=== PATIENT | female | born 1970 | race Caucasian/White ===

== ENCOUNTER 2018-11-10 00:21 | Inpatient (IN) | payer BC, MEDICAID ==
[2018-11-10 00:56] LABS: ABSOLUTE EOSINOPHILS # (AUTO) 0.1 10^3/uL (0.0-0.6); ABSOLUTE LYMPHOCYTES (AUTO) 0.9 10^3/uL (0.5-4.7); ABSOLUTE MONOCYTES (AUTO) 0.4 10^3/uL (0.1-1.4); BASOPHILS % (AUTO) 0.1 % (0-2); EOSINOPHILS % (AUTO) 1.6 % (0-6); HEMOGLOBIN 11.6 g/dL (12.0-15.5); LYMPHOCYTES % (AUTO) 15.8 % (13-45); MEAN CORPUSCULAR HEMOGLOBIN 29.3 pg (27.0-33.4); MEAN CORPUSCULAR HGB CONC 34.3 g/dL (32.0-36.0); MEAN CORPUSCULAR VOLUME 85 fl (80-97); MONOCYTES % (AUTO) 7.8 % (3-13); PLATELET COUNT 171 10^3/uL (150-450); RED BLOOD COUNT 3.98 10^6/uL (3.72-5.28); RED CELL DISTRIBUTION WIDTH 12.2 % (11.5-14.0); SEGMENTED NEUTROPHILS % (AUTO) 74.7 % (42-78); TOTAL CELLS COUNTED % (AUTO) 100 %; WHITE BLOOD COUNT 5.4 10^3/uL (4.0-10.5)
--- NOTE | 2018-11-10 00:57 | ER Document Report ---
ED Syncope and Near Syncope - General Chief Complaint: Syncope Stated Complaint: SYNCOPE Time Seen by Provider: 11/10/18 00:57 Primary Care Provider: PENNY WALDEN CRNP [COMMUNITY BASED STAFF] - Follow up as needed Mode of Arrival: Ambulatory Information source: Patient Notes: HISTORY OF PRESENT ILLNESS: Patient is a 48-year-old female with a past medical history of Crohn's disease status post ileectomy status post appendectomy who presents with sudden onset upper abdominal pain beginning prior to arrival. Location: Upper abdomen Onset: Sudden Alleviation: None Provocation: Movement Quality: "Aching and stabbing at the same time" Radiation: None Severity: "Moderate now but worse earlier " Timing: Constant History of abdominal surgery: Yes Associated symptoms: Nausea but no vomiting, normal bowel movements without diarrhea or constipation Last bowel movement: Prior to arrival and "normal" REVIEW OF SYSTEMS: CONSTITUTIONAL : Denies fever or chills, no sweats. Denies recent illness. EENT: Denies eye, ear, throat, or mouth pain or symptoms. Denies nasal or sinus congestion. CARDIOVASCULAR: Denies chest pain. Denies swelling of the legs. RESPIRATORY: Denies cough, cold, or chest congestion. Denies shortness of breath or difficulty breathing. Denies wheezing. GASTROINTESTINAL: Positive for abdominal pain. Positive for nausea but no vo miting. Denies diarrhea or constipation. GENITOURINARY: Denies difficulty urinating, painful urination, burning, frequency, or blood in urine. FEMALE GENITOURINARY: Denies vaginal bleeding, abnormal or irregular periods. MUSCULOSKELETAL: Denies neck or back pain or joint pain or swelling. SKIN: Denies rash or skin lesions. HEMATOLOGIC : Denies easy bruising or bleeding. LYMPHATIC: Denies swollen, enlarged glands. NEUROLOGICAL: Denies altered mental status or loss of consciousness. Denies headache. Denies weakness or paralysis or loss of use of either side. Denies problems with gait or speech. Denies sensory or motor loss. PSYCHIATRIC: Denies anxiety or stress or depression. All other systems reviewed and negative. PHYSICAL EXAMINATION: GENERAL: Uncomfortable-appearing, well-nourished and in no acute distress. HEAD: Atraumatic, normocephalic. No scalp deformity, depression, or crepitance. EYES: Pupils are 3 mm and equal/round/reactive to light, extraocular movements intact, sclera anicteric, conjunctiva are normal. ENT: Nares patent bilaterally, oropharynx. Moist mucous membranes. No tonsil hypertrophy. NECK: Normal range of motion, supple without lymphadenopathy. LUNGS: Breath sounds present, equal, and clear to auscultation bilaterally. No wheezes, rales, or rhonchi. HEART: Regular rate and rhythm without murmurs, rubs, or gallops. 2+ peripheral pulses. Normal capillary refill. ABDOMEN: Soft and nondistended, mild diffuse upper epigastric and upper a bdominal tenderness. Normoactive bowel sounds. No guarding, no rebound. No masses appreciated. BACK: Normal contour, no midline tenderness. Rectal exam deferred. GENITAL/PELVIC: Deferred. EXTREMITIES: Normal range of motion, no pitting or edema. No cyanosis. NEUROLOGICAL: No focal neurological deficits. Moves all extremities spontaneously and on command. PSYCH: Normal mood, normal affect. No suicidal thoughts/ideations. No homocidal thoughts/ideations. No hallucinations. SKIN: Warm, dry, normal turgor, no rashes or lesions noted. ASSESSMENT AND PLAN: This patient is a 48-year-old female who presents with upper abdominal pain. Differential includes Crohn's flare versus intra-abdominal abscess versus GERD versus pancreatitis versus gastritis versus colitis 1. Will obtain labs, urinalysis, and CT scan of the abdomen/pelvis. 2. Will give IV fluids with morphine/Zofran for symptomatic control. TRAVEL OUTSIDE OF THE [place] IN LAST 30 DAYS: No - Related Data Allergies/Adverse Reactions: rimadyl Allergy (Uncoded 11/10/18 02:58) Past Medical History - General Information source: Patient - Social History Smoking Status: Never Smoker Chew tobacco use (# tins/day): No Frequency of alcohol use: None Drug Abuse: None Lives with: Family Family History: Reviewed & Not Pertinent Patient has suicidal ideation: No Patient has homicidal ideation: No - Past Medical History Cardiac Medical History: Reports: None Pulmonary Medical History: Reports: None EENT Medical History: Reports: None Neurological Medical History: Reports: None Endocrine Medical History: Reports: None Renal/ Medical History: Reports: None Malignancy Medical History: Reports: None GI Medical History: Reports: Hx Crohn's Disease Musculoskeletal Medical History: Reports None Skin Medical History: Reports None Psychiatric Medical History: Reports: None Traumatic Medical History: Reports: None Infectious Medical History: Reports: None Past Surgical History: Reports: Hx Abdominal Surgery, Hx Appendectomy - Immunizations Immunizations up to date: Yes Hx Diphtheria, Pertussis, Tetanus Vaccination: Yes History of Influenza Vaccine for 07/2017 - 12/2017 Season: Yes Physical Exam - Vital signs Vitals: Temp 97.6 F 11/10/18 00:21 Course - Re-evaluation Re-evalutation: 11/10/18 05:09 Lab work, including urinalysis and cardiac enzymes, normal. Patient has a n ormal white blood cell count and continues to be afebrile without evidence of infection. Orthostatic vital signs were normal without evidence of orthostasis. CT scan has been completed but the results are still pending. 11/10/18 06:08 CT scan shows evidence of a partial small bowel obstruction in the terminal ileum. Per surgical recommendation, as well as the internal medicine hospitalist, both agree patient will be best served transfer to a tertiary center. I have spoken with the patient about this and she also agrees. Will contact transfer center. 11/10/18 07:03 Patient has been accepted to [facility]. - Vital Signs Vital signs: Temp Pulse Resp BP Pulse Ox 98.2 F 17 114/74 97 11/10/18 04:25 11/10/18 06:22 11/10/18 06:22 11/10/18 06:22 - Laboratory Result Diagrams: 11/10/18 00:42 11/10/18 00:42 Laboratory results interpreted by me: 11/10/18 11/10/18 00:42 03:40 Hgb 11.6 L Hct 34.0 L Urine Ketones TRACE H - Diagnostic Test Radiology reviewed: Image reviewed - EKG Interpretation by Ri EKG shows normal: Sinus rhythm Rate: Normal Rhythm: NSR [place]/QRS: No: Right axis deviation, Left axis deviation, RBBB, LBBB, IVCD, LAHB/LAFB, LPHB/LPFB, Bifasicular block Voltage: No: Increased voltage, Consistant with LVH, Decreased voltage, Thr oughout, Limb leads P Waves: No: LAURENT, LAE, Absent, AV Dissociation, Other Heart block present: No: 1st Degree, Mobitz 1, Mobitz 2, CHB (3rd degree block) When compared to previous EKG there are: Previous EKG unavailable - Consults Dr. Lainez Time consulted: 05:47 - would be best served at tertiary center Dr. Linares ([facility] [place]) Time consulted: 07:04 Discharge - Discharge Clinical Impression: Partial small bowel obstruction Abdominal pain Qualifiers: Abdominal location: generalized Qualified Code(s): R10.84 - Generalized abdominal pain Crohns disease Qualifiers: Gastrointestinal tract location: small intestine Digestive disease complication type: with intestinal obstruction Qualified Code(s): K50.012 - Crohn's disease of small intestine with intestinal obstruction Condition: Stable Disposition: [facility] Referrals: PENNY WALDEN CRNP [COMMUNITY BASED STAFF] - Follow up as needed
[2018-11-10 01:09] LABS: ALANINE AMINOTRANSFERASE 22 U/L (9-52); ALKALINE PHOSPHATASE 63 U/L (38-126); ANION GAP 9 (5-19); ASPARTATE AMINO TRANSFERASE 16 U/L (14-36); BILIRUBIN,DIRECT 0.1 mg/dL (0.0-0.4); BILIRUBIN,TOTAL 0.6 mg/dL (0.2-1.3); BLOOD UREA NITROGEN 12 mg/dL (7-20); CALCIUM 8.5 mg/dL (8.4-10.2); CARBON DIOXIDE 26 mmol/L (22-30); CHLORIDE 106 mmol/L (98-107); CREATINE KINASE 34 U/L (30-135); GLUCOSE 104 mg/dL (75-110); POTASSIUM 3.9 mmol/L (3.6-5.0); SODIUM 140.5 mmol/L (137-145); TOTAL PROTEIN 6.3 g/dL (6.3-8.2)
[2018-11-10 01:22] LABS: CREATINE KINASE MB < 0.22 ng/mL (<4.55); TROPONIN I < 0.012 ng/mL
[2018-11-10] MEDS ORDERED: NORMAL SALINE 1000 ML 1,000 ML IV ONE ×3 (02:34→07:14)
[2018-11-10] MEDS ORDERED: MORPHINE SULFATE 10 MG/ML INJ IV ONE ×2 (02:36→07:15)
[2018-11-10] MEDS ORDERED: ONDANSETRON HCL INJ/PF 4 MG/2 ML SDV IV ONE ×3 (02:36→17:11)
[2018-11-10 04:18] LABS: APPEARANCE,URINE SLIGHTLY-CLOUDY; BILIRUBIN,URINE NEGATIVE (NEGATIVE); COLOR,URINE YELLOW; GLUCOSE, URINE NEGATIVE (NEGATIVE); KETONES,URINE TRACE mg/dL (NEGATIVE); LEUKOCYTE ESTERASE,URINE NEGATIVE (NEGATIVE); NITRITE,URINE NEGATIVE (NEGATIVE); PROTEIN,URINE NEGATIVE (NEGATIVE); URINE SPECIFIC GRAVITY 1.008; UROBILINOGEN,URINE NEGATIVE mg/dL (<2.0)
--- NOTE | 2018-11-10 05:23 | RADIOLOGY REPORT (SQ) ---
EXAM DESCRIPTION: CT ABDOMEN PELVIS WITH IV CONTRAST COMPLETED DATE/TME: 11/10/2018 00:00 CLINICAL HISTORY: 48 years, Female, Abdominal pain Comparison: None TECHNIQUE: Contiguous axial CT images of the abdomen and pelvis were obtained. Sagittal and coronal reformats were reviewed. This exam was performed according to our departmental dose-optimization program, which includes automated exposure control, adjustment of the mA and/or kV according to patient size and/or use of iterative reconstruction technique. FINDINGS: Lung bases: Clear. Liver:Unremarkable. No focal liver lesion. Gallbladder:Unremarkable. No gallstones. No gallbladder wall thickening or pericholecystic fluid. Spleen:Unremarkable Pancreas: Pancreas is unremarkable. Adrenal glands:Within normal limits. Kidneys/ureters:Within normal limits Stomach/small bowel/colon: Stomach is unremarkable. The distal small bowel is dilated measuring up to 3.7 cm in diameter containing air-fluid level and small bowel feces sign related to stasis. There is abrupt transition point just proximal to the terminal ileum. There may be suture material at this level. Mild mesenteric congestion. The remaining portions of small bowel are mildly dilated. The colon is normal in caliber with retained stool throughout. Appendix: Not visualized. Peritoneum: Small amount of pelvic fluid. Vascular structures: within normal limits Lymph nodes: No abnormal lymph nodes. Bladder:Unremarkable. Pelvic organs: No acute abnormality Bones: No acute osseous abnormality. Soft tissues: Unremarkable.. IMPRESSION: At least partial small bowel obstruction with transition point at the terminal ileum.
[2018-11-10] MEDS ORDERED: METOCLOPRAMIDE HCL INJ/PF 10 MG/2 ML SDV IV ONE (10:13)
[2018-11-10] MEDS ORDERED: LIDOCAINE 2% JELLY 5 ML TUBE NASL ONE (10:13)
--- NOTE | 2018-11-10 10:58 | ER Document Report ---
Doctor's Note Notes: 11/10/18 10:54 Rounds: Chart reviewed and patient interviewed. Patient is being treated for a flare of her Crohn's disease associated with a small bowel obstruction on CT scan here last night. Patient was first diagnosed with Crohn's nearly 10 years ago and had one surgical procedure in 2009. Patient is awaiting transfer to [facility] but they are on the bed delay. Receiving pain medications and anti- antiemetic. Patient appears to be medically stable for transfer. Christelle Mario MD
--- NOTE | 2018-11-10 11:43 | RADIOLOGY REPORT (SQ) ---
EXAM DESCRIPTION: CHEST SINGLE VIEW COMPLETED DATE/TIME: 11/10/2018 11:29 am REASON FOR STUDY: NG Tube COMPARISON: CT abdomen pelvis 11/10/2018 EXAM PARAMETERS: NUMBER OF VIEWS: One view. TECHNIQUE: Single frontal radiographic view of the chest acquired. RADIATION DOSE: NA LIMITATIONS: None. FINDINGS: LUNGS AND PLEURA: No opacities, masses or pneumothorax. No pleural effusion. MEDIASTINUM AND HILAR STRUCTURES: No masses. Contour normal. HEART AND VASCULAR STRUCTURES: Heart normal in size. Normal vasculature. BONES: No acute findings. HARDWARE: Nasogastric tube tip and side port in the stomach. OTHER: No other significant finding. IMPRESSION: NO ACUTE RADIOGRAPHIC FINDING IN THE CHEST. TECHNICAL DOCUMENTATION: JOB ID: [id number] [email or web address]- All Rights Reserved Reading location - IP/workstation name: [email or web address]
[2018-11-10] MEDS ORDERED: HYDROMORPHONE HCL INJ/PF 2 MG/ML AMPULE IV ONE (17:10)
[2018-11-10] MEDS ORDERED: POTASSI CL 40 MEQ/D5-1/2NS 1L 40 MEQ/1,000 ML RTUINJ IV ONE (19:52)
[2018-11-10] MEDS ORDERED: MORPHINE SULFATE 10 MG/ML INJ IV PRN (21:59)
[2018-11-11] MEDS: HYDROMORPHONE HCL INJ/PF 2 MG/ML AMPULE IV PRN ×3 (01:51→08:53)
[2018-11-11] MEDS: NORMAL SALINE 1000 ML 1,000 ML IV PRN ×2 (06:35→08:43)
[2018-11-11] MEDS ORDERED: ONDANSETRON HCL INJ/PF 4 MG/2 ML SDV IV ONE (09:51)
--- NOTE | 2018-11-11 10:05 | ER Document Report ---
Doctor's Note Notes: 11/11/18 10:03 Rounds: Chart reviewed and patient interviewed. Patient still awaiting bed assignment at [facility]. We have been told that there are no beds available and none are expected available today. I am going to attempt to get the patient admitted to the hospital here. Patient says she is still having a small amount of pain in the epigastric and right lower quadrant region, although it is better than yesterday. Still some nausea, as well. NG tube in place. Giving IV Zofran. IV fluids being administered. I spoke with the hospitalist who is agreeable with admitting the patient. I have spoken with surgeon retail zone specialist, Dr. Lainez, and he requested a small bowel series with Gastrografin per NG tube. Christelle Mario MD 11/11/18 11:18 Nurse reports patient is complaining of some burning discomfort in the front of the chest going through to the back. She told the nurse that this is what she has as a result of acid reflux. Patient was given Pepcid 10 mg IV. I am reordering some labs and EKG. 11/11/18 13:32 Patient had an x-ray of her abdomen done here showing contrast from her CT scan into the large bowel and into the descending colon. This would suggest that the patient's bowel obstruction is either cleared or clearing. Dr. Lainez was okay with admitting the patient here. Hospitalist called and he will admit the patient here.
[2018-11-11] MEDS ORDERED: FAMOTIDINE INJ/PF 20 MG/2 ML SDV IV ONE ×3 (10:40→12:02)
[2018-11-11] MEDS ORDERED: DEXTROSE 5%-NORMAL SALINE 1,000 ML IV ONE (11:16)
--- NOTE | 2018-11-11 11:37 | RADIOLOGY REPORT (SQ) ---
EXAM DESCRIPTION: KUB/ABDOMEN (SINGLE VIEW) COMPLETED DATE/TIME: 11/11/2018 11:16 am REASON FOR STUDY: with Gastrografin, SBO on CT scan, Hx Crohn's COMPARISON: CT abdomen pelvis 11/10/2018 NUMBER OF VIEWS: One view. TECHNIQUE: Supine radiographic image of the abdomen acquired. LIMITATIONS: None. FINDINGS: BOWEL GAS PATTERN: Oral contrast given for CT abdomen pelvis 11/10/2018 is now seen in the c olon. There are persistent mildly dilated mid and distal small bowel loops. Stomach decompressed. CALCIFICATIONS: No suspicious calcifications. SOFT TISSUES: No gross mass or suggestion of organomegaly. HARDWARE: Nasogastric tube tip and side port in the stomach BONES: No acute fracture. No worrisome bone lesions. OTHER: Distention of urinary bladder IMPRESSION: Oral contrast given for CT exam 11/10/2018 is seen in the colon Persistent air-filled mildly dilated mid and distal small bowel loops. TECHNICAL DOCUMENTATION: JOB ID: [id number] [email or web address]- All Rights Reserved Reading location - IP/workstation name: [email or web address]
--- NOTE | 2018-11-11 12:36 | EKG REPORT ---
SEVERITY:- NORMAL ECG - SINUS RHYTHM : Confirmed by: Bre Loomis 11-Nov-2018 12:34:51
--- NOTE | 2018-11-11 12:36 | EKG REPORT ---
SEVERITY:- NORMAL ECG - SINUS RHYTHM : Confirmed by: Bre Loomis 11-Nov-2018 12:34:43
[2018-11-11 13:53] LABS: ABSOLUTE LYMPHOCYTES (AUTO) 0.5 10^3/uL (0.5-4.7); ABSOLUTE MONOCYTES (AUTO) 0.2 10^3/uL (0.1-1.4); ABSOLUTE NEUT (AUTO) 4.4 10^3/uL (1.7-8.2); BASOPHILS % (AUTO) 0.1 % (0-2); EOSINOPHILS % (AUTO) 0.4 % (0-6); HEMATOCRIT 33.6 % (36.0-47.0); HEMOGLOBIN 11.5 g/dL (12.0-15.5); LYMPHOCYTES % (AUTO) 9.6 % (13-45); MEAN CORPUSCULAR HEMOGLOBIN 29.1 pg (27.0-33.4); MEAN CORPUSCULAR HGB CONC 34.2 g/dL (32.0-36.0); MEAN CORPUSCULAR VOLUME 85 fl (80-97); MONOCYTES % (AUTO) 3.8 % (3-13); PLATELET COUNT 170 10^3/uL (150-450); RED BLOOD COUNT 3.94 10^6/uL (3.72-5.28); RED CELL DISTRIBUTION WIDTH 11.9 % (11.5-14.0); SEGMENTED NEUTROPHILS % (AUTO) 86.1 % (42-78); TOTAL CELLS COUNTED % (AUTO) 100 %; WHITE BLOOD COUNT 5.1 10^3/uL (4.0-10.5)
[2018-11-11 14:07] LABS: ALANINE AMINOTRANSFERASE 26 U/L (9-52); ALBUMIN 4.1 g/dL (3.5-5.0); ALKALINE PHOSPHATASE 66 U/L (38-126); ANION GAP 9 (5-19); ASPARTATE AMINO TRANSFERASE 16 U/L (14-36); BILIRUBIN,DIRECT 0.1 mg/dL (0.0-0.4); BILIRUBIN,TOTAL 0.5 mg/dL (0.2-1.3); BLOOD UREA NITROGEN 4 mg/dL (7-20); CALCIUM 8.4 mg/dL (8.4-10.2); CARBON DIOXIDE 26 mmol/L (22-30); CHLORIDE 105 mmol/L (98-107); GLUCOSE 125 mg/dL (75-110); LIPASE 77.3 U/L (23-300); POTASSIUM 4.1 mmol/L (3.6-5.0); SODIUM 139.8 mmol/L (137-145); TOTAL PROTEIN 6.5 g/dL (6.3-8.2)
[2018-11-11] MEDS ORDERED: DEXTROSE 5%-NORMAL SALINE 1,000 ML IV PRN (16:26)
[2018-11-11] MEDS ORDERED: ONDANSETRON HCL INJ/PF 4 MG/2 ML SDV IV PRN (16:26)
[2018-11-11] MEDS ORDERED: ACETAMINOPHEN 325 MG TABLET PO PRN (16:26)
[2018-11-11] MEDS ORDERED: HYDROMORPHONE HCL INJ/PF 2 MG/ML AMPULE IV PRN (16:33)
[2018-11-11] MEDS: HEPARIN SOD (PORCINE) 5,000 UNIT/ML 1 ML SYRINGE SUBCUT SCH (23:07)
[2018-11-11] MEDS: PANTOPRAZOLE SODIUM 40 MG VIAL IV SCH (23:09)
--- NOTE | 2018-11-12 05:49 | PDOC H&P ---
History of Present Illness Admission Date/PCP: 11/11/18 13:38 Patient complains of: Epigastric pain. Syncope. History of Present Illness: SOWMYA MITCHELL is a 48 year old female with history of Crohn's disease. She states that approximately 3 days ago she experienced a sharp pain in the epigastric area. It is stabbing in nature. It tends to last for 10-15 seconds and then resolves and recurs every 10-15 minutes. She began to notice some orthostasis. She was "woozy "when standing up. She was walking to the bathroom and felt lightheaded. Then when standing up and walking back to bed after using the laboratory she had a syncopal episode hitting her head on the floor. Family reports that she was unconscious for 1-2 minutes. The initial presentation to the emergency department was for syncope but on exam a small bowel obstruction was identified. She has a history of previous obstruction. In 2009 she required a partial ileectomy but since then has not had any significant problems. Past Medical History Cardiac Medical History: Reports: None Pulmonary Medical History: Reports: None EENT Medical History: Reports: None Neurological Medical History: Reports: None Endocrine Medical History: Reports: None Renal/ Medical History: Reports: None Malignancy Medical History: Reports: None GI Medical History: Reports: Crohn's Disease Musculoskeltal Medical History: Reports: None Skin Medical History: Reports: None Psychiatric Medical History: Reports: None Traumatic Medical History: Reports: None Infectious Medical History: Reports: None Past Surgical History Past Surgical History: Reports: Appendectomy, Other - Partial ileectomy Social History Information Source: Patient Lives with: Family Smoking Status: Never Smoker Frequency of Alcohol Use: None Hx Recreational Drug Use: No Drugs: None Hx Prescription Drug Abuse: No - Advance Directive Resuscitation Status: Full Code Family History Family History: Reviewed & Not Pertinent Parental Family History Reviewed: Yes Children Family History Reviewed: Yes Sibling(s) Family History Reviewed.: Yes Medication/Allergy Home Medications: No Home Medications 11/10/18 Allergies/Adverse Reactions: rimadyl Allergy (Uncoded 11/10/18 02:58) Review of Systems Constitutional: ABSENT: chills, fever(s) Eyes: ABSENT: visual disturbances Ears: ABSENT: hearing changes Nose, Mouth, and Throat: ABSENT: mouth pain, sore throat Cardiovascular: PRESENT: other - Orthostasis resolved. ABSENT: edema, palpitations Respiratory: ABSENT: dyspnea, hemoptysis Gastrointestinal: PRESENT: abdominal pain. ABSENT: nausea Genitourinary: ABSENT: difficulty urinating Musculoskeletal: ABSENT: joint swelling Integumentary: ABSENT: diaphoresis, lesions, rash Neurological: ABSENT: abnormal gait, abnormal movements, abnormal speech Psychiatric: ABSENT: anxiety, depression Endocrine: ABSENT: cold intolerance, heat intolerance, polydipsia, polyuria Hematologic/Lymphatic: ABSENT: easy bleeding, easy bruising Physical Exam Vital Signs: Temp Pulse Resp BP Pulse Ox 98.0 F 75 15 111/71 97 11/11/18 23:57 11/12/18 02:00 11/11/18 23:57 11/11/18 23:57 11/11/18 23:57 Intake & Output 11/10/18 11/11/18 11/12/18 06:59 06:59 06:59 Intake Total 1000 2000 3000 Balance 1000 2000 3000 Weight 68.039 kg General appearance: PRESENT: no acute distress, cooperative, well-developed Head exam: PRESENT: normocephalic, other - Abrasion on left side of forehead Eye exam: PRESENT: conjunctiva pink, EOMI. ABSENT: scleral icterus Ear exam: PRESENT: normal external ear exam Mouth exam: PRESENT: moist, tongue midline Teeth exam: ABSENT: dental tenderness Neck exam: ABSENT: carotid bruit, lymphadenopathy Respiratory exam: PRESENT: clear to auscultation rufina, rales, rhonchi, symmetrical, unlabored, wheezes. ABSENT: accessory muscle use Cardiovascular exam: PRESENT: RRR, +S1, +S2 Pulses: PRESENT: normal dorsalis pedis pul GI/Abdominal exam: PRESENT: normal bowel sounds, soft. ABSENT: tenderness Rectal exam: PRESENT: deferred Gentrourinary exam: ABSENT: indwelling catheter Extremities exam: ABSENT: calf tenderness, pedal edema Musculoskeletal exam: PRESENT: ambulatory Neurological exam: PRESENT: alert, awake, oriented to person, oriented to place, oriented to time, oriented to situation, CN II-XII grossly intact Psychiatric exam: PRESENT: normal mood. ABSENT: agitated, anxious Focused psych exam: ABSENT: restlessness Skin exam: PRESENT: abrasion - Left side of forehead. Minimal erythema remains. Still slightly swollen. Results Laboratory Results: 11/11/18 13:37 11/11/18 13:37 11/11/18 11/11/18 13:37 13:37 WBC 5.1 RBC 3.94 Hgb 11.5 L Hct 33.6 L MCV 85 MCH 29.1 MCHC 34.2 RDW 11.9 Plt Count 170 Seg Neutrophils % 86.1 H Lymphocytes % 9.6 L Monocytes % 3.8 Eosinophils % 0.4 Basophils % 0.1 Absolute Neutrophils 4.4 Absolute Lymphocytes 0.5 Absolute Monocytes 0.2 Absolute Eosinophils 0.0 Absolute Basophils 0.0 Sodium 139.8 Potassium 4.1 Chloride 105 Carbon Dioxide 26 Anion Gap 9 BUN 4 L Creatinine 0.51 L Est GFR ( Amer) > 60 Est GFR (Non-Af Amer) > 60 Glucose 125 H Calcium 8.4 Total Bilirubin 0.5 AST 16 ALT 26 Alkaline Phosphatase 66 Total Protein 6.5 Albumin 4.1 Lipase 77.3 11/10/18 11/10/18 11/11/18 00:42 00:42 13:37 Creatine Kinase 34 CK-MB (CK-2) < 0.22 Troponin I < 0.012 < 0.012 Impressions: Abdomen/Pelvis CT 11/10/18 00:00 IMPRESSION: At least partial small bowel obstruction with transition point at the terminal ileum. Chest X-Ray 11/10/18 00:00 IMPRESSION: NO ACUTE RADIOGRAPHIC FINDING IN THE CHEST. KUB X-Ray 11/11/18 09:58 IMPRESSION: Oral contrast given for CT exam 11/10/2018 is seen in the colon Persistent air-filled mildly dilated mid and distal small bowel loops. Assessment & Plan - Diagnosis (1) Partial small bowel obstruction Is this a current diagnosis for this admission?: Yes Plan: The patient has been awaiting transfer to a facility with a GI specialty service. With no beds available she has been in the emergency department for 48 hours. A nasogastric tube had been in place. This is been removed since reimaging shows flow of contrast through the small bowel at this time. The patient is no longer distended. The nasogastric tube is been removed and I will institute ice chips. She tolerates this well we will advance her diet. (2) Abdominal pain Qualifiers: Abdominal location: generalized Qualified Code(s): R10.84 - Generalized abdominal pain Is this a current diagnosis for this admission?: Yes Plan: Resolved (3) Crohns disease Qualifiers: Gastrointestinal tract location: small intestine Digestive disease complication type: with intestinal obstruction Qualified Code(s): K50.012 - Crohn's disease of small intestine with intestinal obstruction Is this a current diagnosis for this admission?: Yes Plan: The last obstruction she had required removal of a small section of ileum. After discharge she should reestablish with a mortgage banker in this area. She has not needed attention to her Crohn's disease since moving from [place] several years ago. - Time Time Spent: 50 to 70 Minutes Medications reviewed and adjusted accordingly: Yes Anticipated discharge: Home
[2018-11-12] MEDS: HEPARIN SOD (PORCINE) 5,000 UNIT/ML 1 ML SYRINGE SUBCUT SCH ×3 (06:20→22:05)
[2018-11-12] MEDS: PANTOPRAZOLE SODIUM 40 MG VIAL IV SCH ×2 (10:14→21:59)
--- NOTE | 2018-11-12 10:51 | PDOC PROGRESS REPORT ---
Subjective Progress Note for:: 11/12/18 Subjective:: Patient did very well with ice chips. No nausea or vomiting. No abdominal pain. She is passing gas per rectum. Reason For Visit: SMALL BOWEL OBSTRUCTION,SYNCOPE Physical Exam Vital Signs: Temp Pulse Resp BP Pulse Ox 97.8 F 75 16 106/61 97 11/12/18 07:25 11/12/18 07:25 11/12/18 07:25 11/12/18 07:25 11/11/18 23:57 Intake & Output 11/11/18 11/12/18 11/13/18 06:59 06:59 06:59 Intake Total 2000 3000 Balance 2000 3000 Weight 67 kg General appearance: PRESENT: no acute distress, cooperative Respiratory exam: PRESENT: clear to auscultation rufina, symmetrical, unlabored. ABSENT: rales, rhonchi, wheezes Cardiovascular exam: PRESENT: RRR, +S1, +S2, systolic murmur GI/Abdominal exam: PRESENT: normal bowel sounds, soft. ABSENT: tenderness Neurological exam: PRESENT: alert, awake, oriented to person, oriented to place, oriented to time, oriented to situation, CN II-XII grossly intact Psychiatric exam: PRESENT: normal mood. ABSENT: agitated, anxious Results Laboratory Results: 11/11/18 13:37 11/11/18 13:37 11/11/18 11/11/18 13:37 13:37 WBC 5.1 RBC 3.94 Hgb 11.5 L Hct 33.6 L MCV 85 MCH 29.1 MCHC 34.2 RDW 11.9 Plt Count 170 Seg Neutrophils % 86.1 H Lymphocytes % 9.6 L Monocytes % 3.8 Eosinophils % 0.4 Basophils % 0.1 Absolute Neutrophils 4.4 Absolute Lymphocytes 0.5 Absolute Monocytes 0.2 Absolute Eosinophils 0.0 Absolute Basophils 0.0 Sodium 139.8 Potassium 4.1 Chloride 105 Carbon Dioxide 26 Anion Gap 9 BUN 4 L Creatinine 0.51 L Est GFR ( Amer) > 60 Est GFR (Non-Af Amer) > 60 Glucose 125 H Calcium 8.4 Total Bilirubin 0.5 AST 16 ALT 26 Alkaline Phosphatase 66 Total Protein 6.5 Albumin 4.1 Lipase 77.3 11/10/18 11/10/18 11/11/18 00:42 00:42 13:37 Creatine Kinase 34 CK-MB (CK-2) < 0.22 Troponin I < 0.012 < 0.012 Impressions: Abdomen/Pelvis CT 11/10/18 00:00 IMPRESSION: At least partial small bowel obstruction with transition point at the terminal ileum. Chest X-Ray 11/10/18 00:00 IMPRESSION: NO ACUTE RADIOGRAPHIC FINDING IN THE CHEST. KUB X-Ray 11/11/18 09:58 IMPRESSION: Oral contrast given for CT exam 11/10/2018 is seen in the colon Persistent air-filled mildly dilated mid and distal small bowel loops. Assessment & Plan - Diagnosis (1) Partial small bowel obstruction Is this a current diagnosis for this admission?: Yes Plan: Tolerated ice chips. Advance to clears and if tolerated may have a full liquid diet tonight. (2) Abdominal pain Qualifiers: Abdominal location: generalized Qualified Code(s): R10.84 - Generalized abdominal pain Is this a current diagnosis for this admission?: Yes Plan: Resolved (3) Crohns disease Qualifiers: Gastrointestinal tract location: small intestine Digestive disease complica tion type: with intestinal obstruction Qualified Code(s): K50.012 - Crohn's disease of small intestine with intestinal obstruction Is this a current diagnosis for this admission?: Yes Plan: The patient needs to see a industrial registered nurse after discharge. Despite her Crohn's disease she has not seen a industrial registered nurse in more than 5 years. I stressed the need to have regular contact with the industrial registered nurse especially for episodes such as this. No acute medical intervention at this time will de lucero to GI doctor. - Time Time Spent with patient: 15-24 minutes Medications reviewed and adjusted accordingly: Yes Anticipated discharge: Home Within: within 48 hours
[2018-11-13] MEDS: HEPARIN SOD (PORCINE) 5,000 UNIT/ML 1 ML SYRINGE SUBCUT SCH ×2 (05:09→16:13)
[2018-11-13] MEDS: PANTOPRAZOLE SODIUM 40 MG VIAL IV SCH (10:05)
--- NOTE | 2018-11-13 15:10 | PDOC DISCHARGE SUMMARY ---
General - Admit/Disc Date/PCP Admission Date/Primary Care Provider: 11/11/18 13:38 Discharge Date: 11/13/18 - Discharge Diagnosis (1) Partial small bowel obstruction Is this a current diagnosis for this admission?: Yes Summary: The patient had several days of epigastric discomfort. This is not the primary reason that she presented to the hospital. When she was evaluated in the emergency department she was found to have a small bowel obstruction. Conservative therapy was employed. She had a nasogastric tube and was n.p.o. She received adequate IV fluids. After 48 hours the patient began to pass flatus. She was given ice chips, subsequently clear liquids and then advance to regular diet. She has tolerated a regular diet. She has had a bowel movement. She will be discharged home today. I did explain that she needs to advance her diet slowly. She should stick with softer foods and add extra gravy to meats. I also told her that she needs to try to have a bowel movement every day until all of the barium contrast is passed. She will utilize MiraLAX as well as [id number] stool softeners. She has not established with a green prize packer locally. I directed her to do so. She is going to discuss this with her primary care as well as acquaintances and subsequently set up an appointment. (2) Abdominal pain Is this a current diagnosis for this admission?: Yes Summary: Secondary to small bowel obstruction. In addition, based on her history, she may likely have gastritis with reflux. She was started on Protonix in the hospital and I encouraged her to continue with an acid suppressant until she follows up with gastroenterology. (3) Crohns disease Is this a current diagnosis for this admission?: Yes Summary: Patient has had Crohn's disease since she was 14 years old. She has had multiple treatments. She did have one episode of small bowel obstruction many years ago that required removal of a 6 inch piece of her ileum. She has been stable and off of active treatment over the last several years. I will not put her on any specific medication for Crohn's at this time. I did direct her to establish with a green prize packer as soon as she can. - Additional Information Resuscitation Status: Full Code Discharge Diet: Cardiac, Diabetic, Other (Comments) - Utilize MiraLAX until barium contrast is expelled. Discharge Activity: Activity As Tolerated, Balance Activity w/Rest Home Medications: No Home Medications 11/10/18 History of Present Illness Patient complains of: Syncope with epigastric discomfort History of Present Illness: SOWMYA MITCHELL is a 48 year old female with history of Crohn's disease. She states that approximately 3 days ago she experienced a sharp pain in the epigastric area. It is stabbing in nature. It tends to last for 10-15 seconds and then resolves and recurs every 10-15 minutes. She began to notice some orthostasis. She was "woozy "when standing up. She was walking to the bathroom and felt lightheaded. Then when standing up and walking back to bed after using the laboratory she had a syncopal episode hitting her head on the floor. Family reports that she was unconscious for 1-2 minutes. The initial presentation to the emergency department was for syncope but on exam a small bowel obstruction was identified. She has a history of previous obstruction. In 2009 she required a partial ileectomy but since then has not had any significant problems. Hospital Course Hospital Course: The patient had a benign hospital course. Initially she was awaiting transfer to a facility with full-time gastroenterology. While waiting treatment was initiated with conservative care. An NG tube was placed. She was on IV fluids to maintain hydration and was given nothing by mouth. Medications were administered intravenously. These included medications for pain and nausea. After approximately 48 hours a repeat abdominal films show that the contrast was moving through the bowel and reached the colon. The patient was beginning to experience flatus. The NG tube was removed. With the improvement she was admitted to the hospital service to complete her recovery. The patient was given ice chips and subsequently clear liquids. These were tolerated well. She advanced to regular diet and has done well. She has had a bowel movement this morning. She will be discharged home as outlined above. Syncope-the patient had a negative CT scan of her head. The syncopal episode was likely a post micturition syncope. She did not have classic predominant symptoms of the small bowel obstruction but rather this was detected at the time of her evaluation. The patient has no residual symptoms from hitting her head on the floor. She has no amnesia, disordered thought process, ongoing nausea or persistent headache. She will remain well hydrated. She should not have orthostatic problems now that her bowels are working and with good hydration. Physical Exam Vital Signs: Temp Pulse Resp BP Pulse Ox 98.1 F 89 13 124/87 H 97 11/13/18 11:32 11/13/18 11:32 11/13/18 11:32 11/13/18 11:32 11/13/18 11:32 Intake & Output 11/12/18 11/13/18 11/14/18 06:59 06:59 06:59 Intake Total 3000 1674 Balance 3000 1674 Weight 67 kg 68.1 kg General appearance: PRESENT: no acute distress, cooperative, well-developed Respiratory exam: PRESENT: clear to auscultation rufina, symmetrical, unlabored. ABSENT: prolonged expiratory phas, rales, rhonchi, wheezes Cardiovascular exam: PRESENT: RRR, +S1, +S2, systolic murmur - 2/6 GI/Abdominal exam: PRESENT: normal bowel sounds, soft. ABSENT: distended, tenderness Neurological exam: PRESENT: alert, awake, oriented to person, oriented to place, oriented to time, oriented to situation, CN II-XII grossly intact Psychiatric exam: PRESENT: normal mood, other - The patient in fact is crocheting and norwegian in bed.. ABSENT: agitated, anxious Focused psych exam: ABSENT: restlessness Skin exam: PRESENT: abrasion - Abrasion on her forehead is resolving. Results Laboratory Results: 11/11/18 13:37 11/11/18 13:37 11/10/18 11/10/18 11/11/18 00:42 00:42 13:37 Creatine Kinase 34 CK-MB (CK-2) < 0.22 Troponin I < 0.012 < 0.012 Impressions: Abdomen/Pelvis CT 11/10/18 00:00 IMPRESSION: At least partial small bowel obstruction with transition point at the terminal ileum. Chest X-Ray 11/10/18 00:00 IMPRESSION: NO ACUTE RADIOGRAPHIC FINDING IN THE CHEST. KUB X-Ray 11/11/18 09:58 IMPRESSION: Oral contrast given for CT exam 11/10/2018 is seen in the colon Persistent air-filled mildly dilated mid and distal small bowel loops. Qualifiers - * PATIENT BEING DISCHARGED WITH ANY OF THE FOLLOWING DIAGNOSIS: No Plan Discharge Plan: Treatment plan as outlined above. Time Spent: Less than 30 Minutes
[2018-11-13 16:12] VITALS: BP 102/55
== END 2018-11-13 16:33 | disposition home or self-care (01) | DRG 387 ==
LOC: ER 00:21 → EH 11-11 13:38 → 4S 11-11 21:01
PROVIDERS: ADMIT Internal Medicine; ATTEND Internal Medicine
PROC: 0D9670Z Drainage of Stomach with Drainage Device, Via Natural or Artificial Opening (ICD-10-PCS; principal; 2018-11-11)
DX: K50.012 Crohn's disease of small intestine with intestinal obstruction (principal); Z88.8 Allergy status to other drugs, medicaments and biological substances
CPT/HCPCS: 36415; 71045; 74018; 74177; 80053; 81001; 82550; 82553; 82962; 83690; 84484; 85025; 93005; 93010; 96361; 96374; 96375; 96376; 99285; J1170; J2270; J2405; J2765; J3480; J3490; J7030; S0028; S0164